=== PATIENT | female | born 1985 | race Caucasian/White ===

== ENCOUNTER 2017-07-07 17:58 | Emergency (ER) | payer SELFPAY ==
[2016-04-24 20:39] VITALS: BMI 30.9
[~2017-07-07 17:58] MED LIST: FUROSEMIDE40 MG PO; K-DUR20 MEQ PO; MOBIC7.5 MG PO
== END 2017-07-07 19:50 | disposition home or self-care (01) ==
LOC: D.ER 17:58
DX: M71.9 Bursopathy, unspecified (principal); M77.12 Lateral epicondylitis, left elbow; F17.200 Nicotine dependence, unspecified, uncomplicated; M79.622 Pain in left upper arm

== ENCOUNTER 2017-08-02 15:51 | Emergency (ER) | payer SELFPAY ==
[2016-04-24 20:39] VITALS: BMI 30.9
[2017-08-02 16:13] LABS: BASOPHILS 0.2 % (0-2); EOSINOPHILS 1.4 % (0-7); HEMATOCRIT 42.7 % (36.0-48.0); HEMOGLOBIN 14.8 g/dL (12-16); IMMATURE GRANULOCYTES 0.2 % (0-5); LYMPHOCYTES 38.7 % (15-50); MCH 30.8 pg (26.0-34.0); MCHC 34.7 g/dL (31.0-37.0); MEAN PLATELET VOLUME 11.5 fL (7.4-10.4); MONOCYTES 4.6 % (2-11); NEUTROPHILS 54.9 % (40-80); PLATELET COUNT 229 10x3/uL (130-400); RDW 12.2 % (11.5-14.5); WBC 5.7 10x3/uL (4.8-10.8)
[2017-08-02 16:19] LABS: APPEARANCE CLEAR (CLEAR); BILIRUBIN NEGATIVE (NEGATIVE); COLOR YELLOW (YELLOW); GLUCOSE NEGATIVE (NEGATIVE); KETONE NEGATIVE (NEGATIVE); LEUKOCYTE ESTERASE NEGATIVE (NEGATIVE); NITRITE NEGATIVE (NEGATIVE); PROTEIN NEGATIVE (NEGATIVE); UROBILINOGEN NORMAL (NORMAL)
[2017-08-02 16:30] LABS: ANION GAP 12.5 mmol/L (8-16); BILIRUBIN - TOTAL 0.26 mg/dL (0.2-1.3); CALCIUM 9.1 mg/dL (8.5-10.1); CARBON DIOXIDE 27.3 mmol/L (21.0-32.0); CREATININE - SERUM 1.2 mg/dL (0.6-1.3); POTASSIUM - SERUM 3.8 mmol/L (3.5-5.1); PROTEIN - SERUM 7.8 g/dL (6.4-8.2)
== END 2017-08-02 19:55 | disposition home or self-care (01) ==
LOC: D.ER 15:51
PROVIDERS: Emergency Medicine
DX: S29.012A Strain of muscle and tendon of back wall of thorax, initial encounter (principal); X58.XXXA Exposure to other specified factors, initial encounter; Y93.89 Activity, other specified; Y92.019 Unspecified place in single-family (private) house as the place of occurrence of the external cause; M62.830 Muscle spasm of back